=== PATIENT | female | born 1930 | race Caucasian/White ===

== ENCOUNTER 2017-09-06 16:19 | Emergency (ER) | payer MEDICARE ==
[2017-09-06 16:44] VITALS: BP 177/101
--- NOTE | 2017-09-06 18:13 | UC ---
Long Gibson Julia, scribed for Dakota Gage MD on 09/06/17 at 1646 . Abdominal Pain Female HPI - HPI Summary HPI Summary: This patient is a 86 year old F presenting to [facility] [place] with a chief complaint of sudden LUQ upon waking up this morning. Pain is rated 8/10 in severity. Patient reports difficulty walking due to pain. Patient denies fever, chills, n/v/d, urinary symptoms, and constipation. - History of Current Complaint Stated Complaint: side pain Time Seen by Provider: 09/06/17 16:36 Hx Obtained From: Patient Onset/Duration: Sudden Onset, Lasting Hours Timing: Constant Pain Intensity: 8 Pain Scale Used: 0-10 Numeric Location: Discrete At: LUQ Radiates: No Aggravating Factor(s): Movement - walking Alleviating Factor(s): Nothing Associated Signs and Symptoms: Positive: Negative Allergies/Adverse Reactions: Allergies Allergy/AdvReac Type Severity Reaction Status Date / Time No Known Allergies Allergy Verified 09/06/17 17:13 PMH/Surg Hx/FS Hx/Imm Hx Cardiovascular History: Hypertension - Surgical History Surgical History: Yes Surgery Procedure, Year, and Place: LT ANKLE ORIF - Family History Known Family History: Positive: Hypertension - Social History Alcohol Use: Rare Substance Use Type: None Smoking Status (MU): Former Smoker When Did the Patient Quit Smoking/Using Tobacco: 25 years ago Review of Systems Constitutional: Negative Gastrointestinal: Negative - nausea vomiting, diarrhea, constipation, Abdominal Pain Genitourinary: Negative All Other Systems Reviewed And Are Negative: Yes Physical Exam - Summary Physical Exam Summary: VITAL SIGNS: Reviewed. GENERAL: Patient is a well-developed and nourished female who is lying in the stretcher. Patient is not in any acute respiratory distress. HEAD AND FACE: Normocephalic EYES: PERRLA, EOMI x 2. EARS: Hearing grossly intact. MOUTH: Oropharynx within normal limits. NECK: Supple, trachea is midline, no adenopathy, no JVD, no carotid bruit. CHEST: Symmetric, no tenderness at palpation LUNGS: Clear to auscultation bilaterally. No wheezing or crackles. CVS: Regular rate and rhythm, S1 and S2 present, no murmurs or gallops appreciated. ABDOMEN: Soft. Bowel sounds are normal. No abdominal abnormal pulsations. LUQ tenderness with guarding. No rebound. EXTREMITIES: Full ROM in all major joints, no edema, no cyanosis or clubbing. NEURO: Alert and oriented x 3. No acute neurological deficits. Speech is normal and follows commands. SKIN: Dry and warm Triage Information Reviewed: Yes Vital Signs: Initial Vital Signs Temp 98 F 09/06/17 16:38 Pulse 74 09/06/17 16:38 Resp 17 09/06/17 16:38 BP 177/101 09/06/17 16:38 Pulse Ox 96 09/06/17 16:38 Vital Signs Reviewed: Yes Abd Pain Female Course/Dx - Course Course Of Treatment: Patient presents to the urgent care with left upper quadrant pain. Patient reports that the pain started this morning and has worsened throughout the day. Patient denies any fevers or chills, denies any nausea or vomiting, denies any diarrhea or constipation. The pain is 8 out of 10 and is not worsening by anything and is not improved by anything. The pain does not radiate. Patient reports that every time she ambulates the pain worsens. At this point I discussed the findings with the patient and the patient's daughter and the need to follow-up in the emergency department for further workup and management. They understand and agree. The patient is hemodynamically stable. - Differential Dx/Diagnosis Provider Diagnoses: Abdominal pain Discharge - Sign-Out/Discharge Documenting (check all that apply): Discharge/Admit/Transfer - Discharge Plan Condition: Stable Disposition: AGAINST MEDICAL ADVICE Patient Education Materials: Acute Abdominal Pain (DC) Referrals: Jess RICHARDSONPValerie [Primary Care Provider] - Additional Instructions: Patient will be discharged to the emergency room for further workup and assessment. The patient and the patient's daughter declined ambulance transport. Patient's daughter was driving the patient to the emergency department. At - Billing Disposition and Condition Condition: STABLE Disposition: AMA The documentation as recorded by the Long mckeon Julia accurately reflects the service I personally performed and the decisions made by , Dakota Gage MD.
== END 2017-09-06 16:45 | disposition left against medical advice (07) ==
LOC: UCEAST 16:19
DX: R10.12 Left upper quadrant pain (principal); I10 Essential (primary) hypertension; Z87.891 Personal history of nicotine dependence
CPT/HCPCS: 99201; G0463

== ENCOUNTER 2017-09-06 17:10 | Emergency (ER) | payer MEDICARE ==
[2017-09-06] MEDS ORDERED: NS 0.9% 1000 ML* 1,000 ML IV SCH (17:30)
--- NOTE | 2017-09-06 18:07 | ED ---
Abdominal Pain/Female - HPI Summary HPI Summary: PT WITH HX OF ALZ WHO LIVES ALONE C/O CENTRAL ABDO PAIN/LEFT SIDE PAIN STARTING THIS AM. DAUGHTER STATES SHE CALLED PT AT 3PM TO CHECK IN AND PT WAS C/O CENTRAL PAIN FROM "BREASTBONE DOWN". DAUGHTER WENT OVER TO PT'S [facility] AND PT WAS BREATHING HEAVY, AND BENT OVER WITH "LEFT SIDE PAIN". DAUGHTER TOOK PAT TO AND SENT PT TO ED FOR EVAL OF LEFT SIDE PAIN. PT LEFT SIDE PAIN DIMINISHED ON WAY TO ED. PT DENIES ACTIVE PAIN HERE IN ED, OR ANY OTHER SX. PT MAY HAVE HIT HER SIDE ON A WALL THIS AM WHILE TURING A CORNER IN HOUSE BUT NOT SURE, AND DAUGHTER STATES PT DID NOT MENTION IT TO HER EARLIER. PT ALSO DENIES FEVER, COUGH, SORE THROAT, CP, SOB, N/V/D, CHNAGE IN URINE OR BM. MED HX (PER DAUGHTER) = HYPO OR HYPERTHYROID. DAUGHTER ALSO STATES PT AT SOME POINT SELF STOPPED TAKING MEDS 5 YRS AGO FOR HTN, HD, BUT DAUGHTER STATES PT HAS NOT HAD HDL OR HTN ISSUES SINCE DUE TO WEIGHT LOSS. DENIES CARDIAC HX FOR PT. NON SMOKER , DENIES ETOH AND ILLEGAL DRUGS., NO RECENT SURGERY, TRAUMA, ADMISSIONS. - History of Current Complaint Chief Complaint: EDAbdPain Stated Complaint: ABD PAIN Time Seen by Provider: 09/06/17 17:22 Hx Obtained From: Patient, Family/Grader Operator Hx From Patient Unobtainable Due To: Dementia Hx Last Menstrual Period: post Timing: Hours Severity Initially: Severe Severity Currently: None Pain Intensity: 4 Pain Scale Used: 0-10 Numeric Location: Discrete At: LUQ, Discrete At: LLQ, Umbilical Radiates: No Character: Sharp Associated Signs and Symptoms: Positive: Negative Allergies/Adverse Reactions: Allergies Allergy/AdvReac Type Severity Reaction Status Date / Time No Known Allergies Allergy Verified 09/06/17 17:13 Home Medications: Home Medications NK [No Home Medications Reported] 09/06/17 [History Confirmed 09/06/17] PMH/Surg Hx/FS Hx/Imm Hx Endocrine/Hematology History: Reports: Hx Thyroid Disease - no longer taking meds Denies: Hx Diabetes Cardiovascular History: Reports: Hx Hypertension - no longer taking meds Denies: Hx Pacemaker/ICD Respiratory History: Denies: Hx Asthma, Hx Chronic Obstructive Pulmonary Disease (COPD) GI History: Denies: Hx Ulcer Sensory History: Denies: Hx Hearing Aid Neurological History: Reports: Hx Dementia - Alzheimer's Psychiatric History: Denies: Hx Panic Disorder - Surgical History Surgery Procedure, Year, and Place: LT ANKLE ORIF Infectious Disease History: No Infectious Disease History: Denies: Hx Hepatitis, Hx Human Immunodeficiency Virus (HIV), History Other Infectious Disease, Traveled Outside the [place] in Last 30 Days - Family History Known Family History: Positive: Unknown - Social History Alcohol Use: Rare Substance Use Type: Reports: None Hx Tobacco Use: Yes Smoking Status (MU): Former Smoker Review of Systems Constitutional: Negative Eyes: Negative ENT: Negative Cardiovascular: Negative Respiratory: Negative Positive: Abdominal Pain Genitourinary: Negative Musculoskeletal: Negative Skin: Negative Neurological: Negative Psychological: Normal All Other Systems Reviewed And Are Negative: Yes Physical Exam - Summary Physical Exam Summary: NO PAIN WITH PALPATION OF ABDOMEN IN ANY QUADRANT. NO TTP, ECCHYMOSIS, ERYTHEMA , DEFORMITY TO ABDOIMEN, BACK, FLANK, CHEST. LUNGS CTAB. MOVES BILAT UE AND LE FREELY WITHOUT PAIN. Triage Information Reviewed: Yes Vital Signs On Initial Exam: Initial Vitals Temp Pulse Resp BP Pulse Ox 98.3 F 79 16 164/83 94 09/06/17 17:13 09/06/17 17:13 09/06/17 17:13 09/06/17 17:13 09/06/17 17:13 Vital Signs Reviewed: Yes Appearance: Positive: Well-Appearing Skin: Positive: Warm Head/Face: Positive: Normal Head/Face Inspection Eyes: Positive: Normal Neck: Positive: Supple Respiratory/Lung Sounds: Positive: Clear to Auscultation Cardiovascular: Positive: Normal Abdomen Description: Positive: Nontender Musculoskeletal: Positive: Normal Neurological: Positive: Normal Psychiatric: Positive: Normal AVPU Assessment: Alert - [place] Coma Scale Best Eye Response: 4 - Spontaneous Best Motor Response: 6 - Obeys Commands Best Verbal Response: 5 - Oriented Coma Scale Total: 15 Diagnostics - Vital Signs Vital Signs Temp Pulse Resp BP Pulse Ox 09/06/17 17:13 98.3 F 79 16 164/83 94 - Laboratory Result Diagrams: 09/06/17 18:06 09/06/17 18:06 Lab Statement: Any lab studies that have been ordered have been reviewed, and results considered in the medical decision making process. - Radiology cxr Xray Interpretation: No Acute Changes Radiology Interpretation Completed By: Radiologist - CT abdomen pelvis CT Interpretation: No Acute Changes CT Interpretation Completed By: Radiologist - EKG 1 Cardiac Rate: NL EKG Rhythm: Sinus Rhythm ST Segment: Normal Ectopy: None EKG Comparison: No Significant Change Re-Evaluation - Re-Evaluation 1 Re-Evaluation Time: 19:11 Change: Unchanged Comment: Patient remains pain-free. Denies any symptoms 2 Re-Evaluation Time: 21:57 Change: Unchanged Comment: Patient continues to have no pain. Abdominal Pain Fem Course/Dx - Course Course Of Treatment: Complains of possible umbilical, possible left side abdominal pain. Pain resolved prior to arrival in ED. No pain since. All labs and imaging unremarkable. Vital signs stable and unremarkable. Follow-up with primary care - Diagnoses Provider Diagnoses: Left sided abdominal pain Discharge - Sign-Out/Discharge Documenting (check all that apply): Discharge/Admit/Transfer - Discharge Plan Condition: Stable Disposition: HOME Patient Education Materials: Acute Abdominal Pain (ED) Referrals: Valerie Cruz RN [Primary Care Provider] - Additional Instructions: Follow-up with primary care. Return to the ED for any new or worsening symptoms - Billing Disposition and Condition Condition: STABLE Disposition: HOME
[2017-09-06 18:16] LABS: ABS Basophils 0 10^3/ul (0-0.2); ABS Eosinophils 0.1 10^3/ul (0-0.6); ABS Lymphocytes 0.9 10^3/ul (1.0-4.8); ABS Monocytes 1.1 10^3/ul (0-0.8); ABS Neutrophils 3.9 10^3/ul (1.5-7.7); ABS Nucleated RBC 0 10^3/ul; Eosinophil % 2.4 % (0-6); Hematocrit 42 % (35-47); Hemoglobin 14.2 g/dl (12.0-16.0); Lymphocyte % 15.3 % (25-47); Mean Corpuscular HGB Conc 34 g/dl (31-36); Mean Corpuscular Hemoglobin 32 pg (27-31); Mean Corpuscular Volume 94 fL (80-97); Mean Platelet Volume 6.9 um3 (7.4-10.4); Nucleated Red Blood Cells % 0; Platelet Count 296 10^3/ul (150-450); Red Blood Count 4.41 10^6/ul (4.0-5.4); Red Cell Distribution Width 14 % (10.5-15); White Blood Count 6.2 10^3/ul (3.5-10.8)
[2017-09-06 18:28] LABS: INR 0.9 (0.77-1.02)
[2017-09-06 18:48] LABS: EGFR Non-African American 51.5 (>60)
[2017-09-06] MEDS ORDERED: Iodixanol* (CONTRAST) 320 MG/ML 100 ML SDV IV ONE (19:29)
--- NOTE | 2017-09-06 20:10 | RAD ---
INDICATION: Left lower quadrant pain COMPARISON: CT abdomen July 17, 2009 TECHNIQUE: Axial source images were obtained from the hemidiaphragms to the symphysis pubis following administration of oral and intravenous contrast. 6 mL cc Visipaque 320 was utilized. Coronal and sagittal reconstructed images were acquired. Lung bases: There is mild bibasilar atelectasis. Liver: The liver is normal in size. There are no masses. There is no ductal dilatation. Gallbladder: There are no calcified gallstones. There is no evidence of wall thickening or pericholecystic fluid. Spleen: The spleen is normal in size. There are no masses. Pancreas: There is no focal pancreatic mass or ductal dilatation. Adrenal glands: There is no evidence of adrenal mass. Kidneys: The kidneys are normal in size and position. There are prompt nephrograms and there is prompt excretion bilaterally. There are no renal parenchymal masses. There is no evidence of nephrolithiasis. Adenopathy: There is no evidence of adenopathy by size criteria. Fluid collections: There are no free or localized fluid collections. Vessels:There are atherosclerotic changes involving the aorta and iliac vessels. There is no focal aneurysm. The IVC appears normal. GI tract: There are no acute CT bowel findings. There is no obstruction. The stomach and small bowel appear normal. There are moderate diverticula of the sigmoid colon. There are no CT findings of acute diverticulitis. The appendix is normal. Pelvic organs: The uterus and adnexa appear normal Bladder: There are no bladder masses. Abdominal and pelvic soft tissues: The extraperitoneal abdominal and pelvic soft tissues appear normal.. Osseous structures: There are no acute osseous findings. Other: None IMPRESSION: DIVERTICULA SIGMOID COLON. NO ACUTE FINDINGS
[2017-09-06 21:28] LABS: Urine Appearance Clear; Urine Blood 2+ (Negative); Urine Color Colorless; Urine Ketones Negative (Negative); Urine Protein Negative (Negative); Urine Specific Gravity 1.018 (1.010-1.030); Urine Urobilinogen Negative (Negative)
[2017-09-06 22:25] VITALS: BP 161/81
== END 2017-09-06 22:24 | disposition home or self-care (01) ==
LOC: ED 17:10
DX: R10.30 Lower abdominal pain, unspecified (principal); K57.90 Diverticulosis of intestine, part unspecified, without perforation or abscess without bleeding
CPT/HCPCS: 36415; 74177; 80053; 81003; 81015; 82550; 83605; 83690; 83735; 83880; 84443; 84484; 85025; 85610; 85730; 86140; 87086; 93005; 96360; 96374; 99284; Q9967

== ENCOUNTER 2018-12-24 10:28 | Emergency (ER) | payer MEDICARE ==
[2018-12-24 12:10] VITALS: BP 161/87
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
== END 2018-12-24 12:06 | disposition home or self-care (01) ==
LOC: ED 10:28
DX: F03.90 Unspecified dementia, unspecified severity, without behavioral disturbance, psychotic disturbance, mood disturbance, and anxiety (principal); I10 Essential (primary) hypertension; Z87.891 Personal history of nicotine dependence
CPT/HCPCS: 99282

== ENCOUNTER 2020-04-22 14:20 | Inpatient (IN) ==
[2020-04-22] MEDS ORDERED: NS 0.9% 1000 ml BAG 1,000 ML IV ONE (15:08)
[2020-04-22 15:12] LABS: Hematocrit 44 % (35-47); Hemoglobin 14.9 g/dL (12.0-16.0); Mean Corpuscular HGB Conc 34 g/dL (31-36); Mean Corpuscular Hemoglobin 32 pg (27-31); Mean Corpuscular Volume 95 fL (80-97); Mean Platelet Volume 7.5 fL (7.4-10.4); Platelet Count 270 10^3/uL (150-450); Red Blood Count 4.69 10^6 /uL (3.70-4.87); Red Cell Distribution Width 14 % (10-15); White Blood Count 14.9 10^3/uL (3.5-10.8)
[2020-04-22 15:14] LABS: ABS Lymphocytes 0.8 10^3/ul (1.0-4.8); ABS Monocytes 2.3 10^3/ul (0-0.8); ABS Neutrophils 11.8 10^3/ul (1.5-7.7); Eosinophil % 0.1 %; Lymphocyte % 5.1 %
[2020-04-22 15:35] LABS: Troponin I 0.03 ng/mL (<0.03)
[2020-04-22 15:37] LABS: ALT 13 U/L (7-52); AST 23 U/L (13-39); Albumin 3.5 g/dL (3.2-5.2); Albumin/Globulin Ratio 1.1 (1-3); Alkaline Phosphatase 113 U/L (34-104); Anion Gap 10 mmol/L (2-11); BUN/Creatinine Ratio 30.3 (8-20); Blood Urea Nitrogen 27 mg/dL (6-24); CO2 Carbon Dioxide 21 mmol/L (22-32); Calcium 8.6 mg/dL (8.6-10.3); Chloride 105 mmol/L (101-111); Creatine Kinase 246 U/L (10-223); EGFR African American 72.4 (>60); EGFR Non-African American 59.9 (>60); Globulin 3.1 g/dL (2-4); Glucose 106 mg/dL (70-100); Magnesium 1.9 mg/dL (1.9-2.7); Potassium 3.2 mmol/L (3.5-5.0); Sodium 136 mmol/L (135-145); Total Protein 6.6 g/dL (6.4-8.9)
[2020-04-22 15:40] LABS: Urine Appearance Cloudy; Urine Bilirubin Negative (Negative); Urine Blood 2+ (Negative); Urine Color Amber; Urine Glucose Negative (Negative); Urine Ketones Trace (Negative); Urine Nitrite Negative (Negative); Urine Protein 1+(30 mg/dL) (Negative); Urine Specific Gravity 1.029 (1.010-1.030); Urine Urobilinogen Negative (Negative)
[2020-04-22 15:47] LABS: Urine Bacteria Absent (Absent); Urine Red Blood Cell 3+(>10/hpf) (Absent); Urine Squamous Epithelial Cell Present (Absent); Urine White Blood Cell 1+(6-10/hpf) (Absent)
[2020-04-22 15:49] LABS: Acetaminophen < 15 mcg/mL; Alcohol, S < 10 mg/dL (<10); Salicylate < 2.50 mg/dL (<30)
[2020-04-22 16:03] LABS: TSH Ultra Thyroid Stim Horm 4.48 mcIU/mL (0.34-5.60)
[2020-04-22] MEDS ORDERED: cefTRIAXone 1 gm/50 mL NS BAG 1 GM/50 ML BAG IV ONE (17:05)
[2020-04-22] MEDS ORDERED: Azithromycin 500 mg/250 ml NS 500 MG/250 ML BAG IVPB ONE (17:06)
[2020-04-22] MEDS ORDERED: Potassium Chloride LIQUID 20 MEQ/15 ML LIQUID PO ONE (17:56)
[2020-04-22 18:44] LABS: Troponin I 0.03 ng/mL (<0.03)
[2020-04-22] MEDS: Enoxaparin 40 MG/0.4 ML SYR SUBCUT SCH (23:04)
[2020-04-22] MEDS: NS 0.9% 1000 ml BAG 1,000 ML IV SCH (23:05)
[2020-04-23] MEDS: NS 0.9% 1000 ml BAG 1,000 ML IV SCH (01:28)
[2020-04-23] MEDS ORDERED: NS 0.9% w/ 40 Meq KCL 1000 ML 1,000 ML IV SCH (03:00)
[2020-04-23 12:51] LABS: Hematocrit 44 % (35-47); Mean Corpuscular HGB Conc 34 g/dL (31-36); Mean Corpuscular Hemoglobin 32 pg (27-31); Mean Corpuscular Volume 95 fL (80-97); Mean Platelet Volume 7.3 fL (7.4-10.4); Platelet Count 272 10^3/uL (150-450); Red Blood Count 4.68 10^6 /uL (3.70-4.87); Red Cell Distribution Width 14 % (10-15); White Blood Count 10.5 10^3/uL (3.5-10.8)
[2020-04-23 12:52] LABS: ABS Eosinophils 0.1 10^3/ul (0-0.6); ABS Lymphocytes 0.5 10^3/ul (1.0-4.8); ABS Monocytes 1.7 10^3/ul (0-0.8); ABS Neutrophils 8.2 10^3/ul (1.5-7.7); Eosinophil % 0.5 %; Lymphocyte % 4.4 %; Nucleated Red Blood Cells % 0.1
[2020-04-23 12:56] LABS: Calcium 8.8 mg/dL (8.6-10.3); EGFR African American 79.6 (>60); EGFR Non-African American 65.8 (>60); Potassium 3.4 mmol/L (3.5-5.0)
[2020-04-23] MEDS ORDERED: Potassium Chlor 20 meq TAB.ER PO ONE (17:09)
[2020-04-23] MEDS ORDERED: Azithromycin 500 mg/250 ml NS 500 MG/250 ML BAG IVPB SCH (18:00)
[2020-04-23] MEDS: cefTRIAXone 1 gm/50 mL NS BAG 1 GM/50 ML BAG IVPB SCH (19:02)
[2020-04-23] MEDS: Enoxaparin 40 MG/0.4 ML SYR SUBCUT SCH (22:06)
[2020-04-24 06:37] LABS: Hematocrit 37 % (35-47); Hemoglobin 12.6 g/dL (12.0-16.0); Mean Corpuscular HGB Conc 34 g/dL (31-36); Mean Corpuscular Hemoglobin 32 pg (27-31); Mean Corpuscular Volume 93 fL (80-97); Mean Platelet Volume 7.3 fL (7.4-10.4); Platelet Count 290 10^3/uL (150-450); Red Blood Count 3.98 10^6 /uL (3.70-4.87); Red Cell Distribution Width 14 % (10-15); White Blood Count 6.7 10^3/uL (3.5-10.8)
[2020-04-24 06:51] LABS: BUN/Creatinine Ratio 19.5 (8-20); Calcium 8.3 mg/dL (8.6-10.3); EGFR African American 74.4 (>60); EGFR Non-African American 61.4 (>60); Potassium 3.5 mmol/L (3.5-5.0)
[2020-04-24] MEDS: cefTRIAXone 1 gm/50 mL NS BAG 1 GM/50 ML BAG IVPB SCH (17:47)
[2020-04-24] MEDS: Enoxaparin 40 MG/0.4 ML SYR SUBCUT SCH (19:50)
[2020-04-25] MEDS: cefTRIAXone 1 gm/50 mL NS BAG 1 GM/50 ML BAG IVPB SCH (17:39)
[2020-04-25] MEDS: Enoxaparin 40 MG/0.4 ML SYR SUBCUT SCH (20:38)
[2020-04-26] MEDS: cefTRIAXone 1 gm/50 mL NS BAG 1 GM/50 ML BAG IVPB SCH (17:48)
[2020-04-26] MEDS: Enoxaparin 40 MG/0.4 ML SYR SUBCUT SCH (21:34)
[2020-04-27 05:48] LABS: Hematocrit 38 % (35-47); Hemoglobin 12.7 g/dL (12.0-16.0); Mean Corpuscular HGB Conc 34 g/dL (31-36); Mean Corpuscular Hemoglobin 32 pg (27-31); Mean Corpuscular Volume 94 fL (80-97); Mean Platelet Volume 7.2 fL (7.4-10.4); Platelet Count 389 10^3/uL (150-450); Red Blood Count 3.97 10^6 /uL (3.70-4.87); Red Cell Distribution Width 14 % (10-15); White Blood Count 6.5 10^3/uL (3.5-10.8)
[2020-04-27] MEDS: Enoxaparin 40 MG/0.4 ML SYR SUBCUT SCH (21:55)
[2020-04-28] MEDS: Enoxaparin 40 MG/0.4 ML SYR SUBCUT SCH (21:50)
[2020-04-29] MEDS: NS 0.9% 1000 ml BAG 1,000 ML IV ONE ×2 (14:51→15:22)
[2020-04-29] MEDS: Enoxaparin 40 MG/0.4 ML SYR SUBCUT SCH (22:43)
[2020-04-30 09:35] LABS: BUN/Creatinine Ratio 12.2 (8-20); Calcium 8.7 mg/dL (8.6-10.3); EGFR African American 79.6 (>60); EGFR Non-African American 65.8 (>60); Potassium 4.2 mmol/L (3.5-5.0)
[2020-04-30 11:15] VITALS: BP 122/56
== END 2020-04-30 14:40 | DRG 872 ==
LOC: ED 14:20 → MED 22:21 → MEDTELE 04-23 21:40 → SSU 04-26 04:02
PROVIDERS: ADMIT Nurse Practitioner; ATTEND Internal Medicine